=== PATIENT | male | born 1960 | race Two or more races ===

== ENCOUNTER → 2022-07-02 | Emergency (ER) | payer OTHER ==
[~2022-07-02] VITALS: Ht 172.7 cm; Wt 72.6 kg
[~2022-07-02] MED LIST: CEFADROXIL500 MG PO; TRAM1TAB98 PO
== END | disposition home or self-care (01) ==
LOC: ER 16:55
DX: S61.222A Laceration with foreign body of right middle finger without damage to nail, initial encounter (principal); W27.0XXA Contact with workbench tool, initial encounter; Y93.89 Activity, other specified; Y92.89 Other specified places as the place of occurrence of the external cause